=== PATIENT | male | born 1965 | race Caucasian/White ===

== ENCOUNTER → 2016-09-09 | Day surgery (SDC) | payer MEDICAID ==
[~2016-09-09] MED LIST: HUMALOG MIX75/253 ML SC; JANUVIA100 MG PO; LISINOPRIL20 MG PO; METFORMIN HCL1000 MG PO; TIZANIDINE HCL 44 MG NG; TRESIBA FL100 UNIT/1 SQ
[2016-09-09 07:46] LABS: HEMOGLOBIN 14.5 g/dL (14.1-18.0); LYMPH # 1.9 K/mm3 (0.7-4.5); LYMPH % 34.6 % (10-50)
[2016-09-09 07:50] LABS: BUN 15 mg/dL (7-18)
[2016-09-09 07:51] LABS: GFR (ESTIMATED) 64 ML/MIN (>60)
--- NOTE | 2016-09-09 08:43 | RADIOLOGY REPORT PS360 ---
ARTERIAL/HFR-ZNIBQPRWOEV-ZIN CLAUDICATION, ORDERING PHYSICIAN: Jt Alfred MD PATIENT AGE: 51 years TECHNIQUE: Segmental pressures obtained of both right and left leg. These are compared to brachial blood pressure to yield index at each level sampled including summary NICHOLAS. The data sheets from the procedure are available in PACS FINDINGS Rest study only performed today No prior studies available for comparison. Blood pressures reported are in millimeters mercury. RIGHT LEG NICHOLAS = 1.3. Brachial BP: 135 Thigh BP: 142 Calf BP: 159 Ankle PT: 173 Ankle DP : 125 Digit =131 LEFT LEG NICHOLAS = 1.2 Brachial BPD: 132 Thigh BP: 152 Calf BP: 176 Ankle PT:168 Ankle DP: 133 Digit = 140 Pulses and waveforms: Normal IMPRESSION: 1. The right NICHOLAS is slightly high and may be seen with vessel hardening from diabetes 2. Unremarkable left NICHOLAS with normal bilateral waveforms and pulses
--- NOTE | 2016-09-09 13:08 | RADIOLOGY REPORT PS360 ---
CARDIAC CATHETERIZATION DATE OF CATHETERIZATION:09/09/2016 11:29 AM PROCEDURES: 1. Left heart catheterization 2. Left ventriculogram 3. Selective coronary angiogram INDICATION FOR TEST: 1. Abnormal Myoview 2. Risk factors for coronary artery disease 3. Angina pectoris Informed consent was obtained prior to the procedure. COMPLICATIONS: None ESTIMATED BLOOD LOSS: Less than 10 ml. TECHNIQUE: One percent lidocaine used to anesthetize the right anterior aspect of the wrist. The right radial artery was accessed via the Seldinger technique. A 6 Dutch sheath was placed in the right radial artery. 2.5 mg of verapamil, 800 mcg of nitroglycerin and 5000 U Heparin were given through the arterial sheath. The Veronica catheter was also used to perform left heart catheterization and left ventriculography. At the end of the procedure the patient was transferred to the post-op holding area in stable condition for arterial sheath removal. ANGIOGRAPHIC RESULTS: 1. The left main artery normal 2. The left anterior descending artery proximally has mild luminal irregularities with a concentric 20% stenosis immediately after the first septal acquisitions logistics analyst and first diagonal artery. There is an additional 20% mid vessel stenosis 3. The circumflex artery is a very large dominant vessel which has mild luminal irregularities with no stenosis greater than 10% 4. The right coronary artery is a vestigial vessel and normal 5. The MOON ventriculogram reveals normal 65% 6. The left ventricular end-diastolic pressure 10 mmHg IMPRESSION: 1. Mild nonflow limiting coronary artery disease 2. Normal ejection fraction 3. Normal left ventricular end-diastolic pressure PLAN: 1. Risk factor modification 2. Evaluation of noncardiac chest pain
[2016-09-09 14:51] VITALS: BP 125/80
--- NOTE | 2016-09-10 11:47 | RADIOLOGY REPORT PS360 ---
PROCEDURE 2-D M-mode and color Doppler study INDICATIONS FOR THE TEST: Chest pain + COPD Heart Murmur Tobacco Smoking Palpitations Fatigue Syncope Edema Hypertension+Diabetes Mellitus+ Rheumatic Fever SOB+PENA Obesity Hyperlipidemia+ Family History HD Additional History PATIENT INFORMATION HEIGHT: 64 WEIGHT:205 GENDER: Male B/P: 2-D/M-MODE INTERPRETATION: 2-D MEASUREMENTS OBSERVED VALUES IN CMS Right Ventricular Dimension (RVDd) 2.4 Interventricular Septum (Thickness)(IVsd) 1.7 Left Ventricular Internal Dimensions(LVIDd) 4.2 Left Ventricular Posterior Wall (Thickness)(LVPWd) 1.6 Aortic Root 4.1 Aortic Cusp Separation 2.1 Left Atrial Dimensions (LAD) 3.5 2D 1. The left atrium is qualitatively mildly enlarged, left ventricle is normal size, there is mild concentric left ventricular hypertrophy present, visually estimated ejection fraction of 55% with no obvious regional wall motion abnormality. 2. The right atrium and right ventricle is normal size and contractility. 3. The aortic valve is minimally thickened and calcified. 4. The mitral valve leaflets are minimally thickened. 5. The tricuspid valve is structurally normal. 6. Pulmonic valve is not well visualized. 7. No significant pericardial effusion noted. DOPPLER INTERROGATION: Doppler interrogation of the aortic mitral and tricuspid valvular presence of mild aortic, mild mitral and tricuspid regurgitation, tricuspid regurgitant jet velocity insufficient for calculation of the right ventricular systolic pressure, diastolic parameters are inconclusive. CONCLUSION: 1. Mildly enlarged left atrium, normal left ventricular size, mild concentric left ventricular hypertrophy, visually estimated ejection fraction 55% with no obvious regional wall motion abnormality. 2. Mild mitral, mild aortic and mild tricuspid regurgitation. 3. No significant pericardial effusion noted.
== END ==
LOC: CATHLAB 06:14 → RT 06:14 → EDSTATUS 07:00
PROVIDERS: Internal Medicine
PROC: B2111ZZ Fluoroscopy of Multiple Coronary Arteries using Low Osmolar Contrast (ICD-10-PCS; 2016-09-09)
PROC: 4A023N7 Measurement of Cardiac Sampling and Pressure, Left Heart, Percutaneous Approach (ICD-10-PCS; principal; 2016-09-09 10:00)
DX: R07.9 Chest pain, unspecified (principal); R94.39 Abnormal result of other cardiovascular function study; I20.8 Other forms of angina pectoris; I70.213 Atherosclerosis of native arteries of extremities with intermittent claudication, bilateral legs; E11.9 Type 2 diabetes mellitus without complications; I10 Essential (primary) hypertension
CPT/HCPCS: C1725; C1769; J1644; Q9967

== ENCOUNTER → 2016-12-12 | Outpatient (CLI) | payer MEDICAID ==
[2016-12-12 15:48] LABS: HEMOGLOBIN 15.2 g/dL (14.1-18.0); LYMPH # 1.9 K/mm3 (0.7-4.5); LYMPH % 28.8 % (10-50)
[2016-12-12 17:28] LABS: BUN 12 mg/dL (7-18)
[2016-12-12 17:32] LABS: GFR (ESTIMATED) 89 ML/MIN (>60)
== END ==
LOC: LAB 15:02
PROVIDERS: Surgery
DX: K40.20 Bilateral inguinal hernia, without obstruction or gangrene, not specified as recurrent (principal); Z01.810 Encounter for preprocedural cardiovascular examination; Z01.811 Encounter for preprocedural respiratory examination; Z01.812 Encounter for preprocedural laboratory examination

== ENCOUNTER 2017-01-02 13:23 | Inpatient (IN) | payer MEDICARE ==
[~2017-01-02] VITALS: Ht 165.1 cm; Wt 92.5 kg
[2017-01-02 13:30] VITALS: BP 161/96
--- NOTE | 2017-01-02 13:54 | Emergency Room Report ---
History of Present Illness Time Seen by [id number] Presenting Problem in Triage Pt arrived:Walked Presenting Problem:PT STATES THAT DR. MALDONADO SENT HIM TO THE ER FROM THE OFFICE R /T TO HIS HIGH BLOOD PRESSURE. PT C/O DIZZINESS HEADACHE. 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 RESIDENCE LEASING AGENT Provided by:SELF Sepsis Risk Assessment: Temp: 98.6 B/P: 161/96 MAP: 117 Pulse: 96 Resp: 20 Recent fever? N Clinical Suspician of Infection? N Mental Status: 1 - Regular (Normal Baseline) Sepsis Risk:Possible Sepsis Risk Have you (or family members/close friends) recently traveled outside the [place]? N If Yes, where/when: Have you had exposure to infectious disease within the past month? N TB? Other? Specify: Source patient, RN notes reviewed, family, RN/MD Exam Limitations no limitations Comment Set 51-year-old male patient presenting to the emergency room from Dr. Conte's office where he went for his 2 week follow-up s/p left inguinal hernia surgery. In the general surgeon's office the patient was dizzy, with a headache, and was found to have a elevated blood pressure, reason why he was sent to the emergency room. The patient is a diabetic, has had strokes in the past. The emergency room the patient also advised that he has been weak and numb on the LEFT side since 8 AM yesterday, when he woke up. He was actually last within normal the night before last, at 9pm when we wnet ot bed (menaing two days ago). Patient hasn't chest pain, any shots of breath at this time. ALLERGIES Coded Allergies: No Known Allergies (12/14/16) Home Medications Active Scripts Insulin Degludec (Tresiba Flextouch U-100) 15 UNIT SQ QHS #1 SYR Ref 1 Prov: 07/15/16 Reported Medications Lisinopril 20 MG PO DAILY #30 TIZANIDINE HCL (Tizanidine Hcl 4 Mg Tablet) 4 MG NG DAILY #30 METFORMIN HCL (Metformin 1000MG) 1,000 MG PO #60 Sitagliptin Phosphate (Januvia 100MG) 100 MG PO DAILY #30 History Medical History General CAD? No Angina: No MN: No Hypertension? Yes Hyperlipidemia? Yes CHF? No DVT? No PE? No COPD? No Asthma? No Anemia? No GERD? No Gastric ulcers? No GI Bleed? No Hernia? Yes Thyroid Problems? No Hypothyroidism? No CVA? Yes Seizures? No Diabetes? Yes Insulin Dependent: Yes Insulin Pump: No Home FSBS? Yes Renal Insuffiency? No End Stage Renal Disease? No UTI? No Stones? Yes BPH? No GB Disease: No Nephritic Syndrome? No Asplenia? No Hepatitis? No Sickle Cell Disease? No Arthritis? No Migraines? No Cataracts? No Glaucoma? No MRSA? No HIV? No TB? No Anxiety? No Depression? No Cancer? No More? No Immunization Hx DT/Tetanus Unknown Flu Refused Pneumonia Refuses Surgical Hx Previous Surgery?Y CARDIAC STENT HERNIA REPAIR Family History Family Hx Diabetes Yes CAD Yes Hypertension Yes Hyperlipidemia Yes Cancer No TB No Social History Smoking Hx Smoker: Former Smoker Tobacco: No Alcohol Alcohol: Yes Review of Systems All Other Systems Reviewed and Negative Psychiatric/Neurological numbness (left-sided), paresthesia (left-sided), weakness (left-sided) Physical Exam Vital Signs Vital Signs Date Time Temp Pulse Resp B/P Pulse O2 O2 Flow FiO2 Ox Delivery Rate 01/02 1330 98.6 96 20 161/96 97 General Appearance normal appearance, WD/WN, mild distress Eye Exam - bilateral eye normal exam, bilateral eye PERRL, bilateral eye EOMI Neck normal inspection, non-tender, supple, full range of motion Respiratory Status Yes: trachea midline, chest symmetrical, non tender chest. No: respiratory distress. Lung Sounds bilateral: normal breath sounds, lungs clear. Cardiovascular normal exam, regular rate/rhythm, no peripheral edema, no gallop, no JVD, no murmur, no rub, normal peripheral pulses Gastrointestinal normal bowel sounds, normal exam, non tender, soft, no organomegaly Extremities non-tender, normal range of motion, normal inspection Neurologic alert, oriented x 3, facial droop (LEFT side), motor weakness (LEFT side), sensory deficit (LEFT side), no visual disturbance, no itching parents Glascow Coma Scale Glascow Coma Scale Response Value EYE response: 4 Spontaneously 4 MOTOR response: 6 OBEYS 6 VERBAL response: 5 Oriented & Converses 5 Total 15 Mental status normal mood/affect Skin intact, normal color, warm/dry Stroke Score/Tx Stroke Evaluation Initial symptoms indicative of possible stroke? Yes NIH STROKE SCORE NIH STROKE SCORE Response Value 1a.Level of Consciousness ALERT 0 1b.LOC Questions ANSWERS BOTH CORRECTLY 0 1c.LOC Commands OBEYS BOTH CORRECTLY 0 2 .Best Gaze NORMAL 0 3 .Visual NO VISUAL LOSS 0 4 .Facial Palsy MINOR 1 5a.Motor Arm Left DRIFT 1 5b.Motor Arm Right DRIFT 1 6a.Motor Leg Left DRIFT 1 6b.Motor Leg Right NO DRIFT 0 7 .Limb Ataxia ABSENT 0 8 .Sensory PARTIAL LOSS 1 9 .Best Language NO APHASIA 0 10.Dysarthria NORMAL ARTICULATION 0 ED.NIH11 NO NEGLECT 0 Total 5 Treatment Consideration t-PA ordered? No Medical contraindications- outside of the therapeutic window Exit section? Yes Medical Decision Making LABS/Meds/Orders Pt receiving controlled substance in ED? No Comment 1430-discussed with Dr. Slaughter, advised of patient's presentation, findings, including CT scan results, as well as onset of neurological deficit. Dr. Slaughter agreeable with hospitalization, recommended ultrasound carotids and echocardiogram today, neuro checks overnight, and arrangements to be made for an MRI brain for tomorrow morning. Abdominal admission patient was in stable medical condition, with no neurological improvement. Results/Orders Laboratory Tests 01/02/17 1400: Sodium 140, Potassium 4.2, Chloride 104, Carbon Dioxide 28, BUN 9, Creatinine 1.0, Estimated Creat Clear 113, Estimated GFR (MDRD) 78, Glucose 196 H, Calcium 8.9, Total Bilirubin 0.3, AST 12 L, ALT 30, Alkaline Phosphatase 79, Creatine Kinase 65, CK-MB (CK-2) Rel Index 0.8, CK and CKMB Interp < 0.5, Troponin I < 0.02, Total Protein 7.8, Albumin 3.8, Globulin 4.0 H, Albumin/Globulin Ratio 1.0 L, PT 10.0, INR 0.93, APTT 24.4, WBC 5.8, RBC 5.12, Hgb 14.4, Hct 44.5, MCV 86.8, RDW 12.5, Plt Count 298, MPV 6.3 L, Gran % 51.4, Gran # 3.0, Lymphocytes % 37.7, Monocytes % 5.6, Eosinophils % 4.2, Basophils % 1.2, Lymphocytes # 2.2, Monocytes # 0.3, Eosinophils # 0.2, Basophils # 0.1, PUBS MCHC 32.4, MCH 28.1 Current Medication Orders Sig/Rodrigo Start time Last Medication Dose Route Stop Time Status Admin Clonidine HCl 0 .STK-MED ONE 01/02 1423 DC .ROUTE Aspirin 0 .STK-MED ONE 01/02 1422 DC .ROUTE Aspirin 325 MG ONCE ONE 01/02 1415 DC 01/02 PO 01/02 1416 1425 Clonidine HCl 0.1 MG ONCE ONE 01/02 1415 DC 01/02 PO 01/02 1416 1424 Sodium Chloride 10 ML PRN PRN 01/02 1345 AC IV 01/03 1339 Orders Procedure Date/time Status Decision to admit 01/02 1427 Active ARTERIAL CAROTID 01/02 1414 Active ECHO ADULT 01/02 1413 Active PARTIAL THROMBOPLASTIN TIME 01/02 1413 Complete PROTHROMBIN TIME 01/02 1413 Complete ELECTROCARDIOGRAM REQUEST 01/[address] HEAD REQ 01/02 1340 Active CHEST(2 VIEWS-NOT PORTABLE) 01/02 1340 Active IV SALINE LOCK 01/02 1340 Active CBC WITH AUTO DIFF 01/02 1340 Complete CARDIAC ENZYMES 01/02 1340 Complete CHEM 12 PROFILE 01/02 1340 Complete 12 LEAD EKG-BESSON (INITIAL) 01/02 UNK Active CM/EKG CM/retail center receptionist Rhythm Normal Sinus Rhythm Rate 85 Ectopy No Comments No acute ischemic changes EKG rate, NSR, rhythm, no evid. of ischemic chgs, no ectopy, normal QRS, normal NC, no EKG for comparison, non-spec. ST/Twave chgs, ST elevation, ST depression, LBBB, RBBB, ectopy, abnormal Q waves XRAY/CT/US XRAY/CT/US 1 XRAY chest XR interpretation by reviewed by me Xray Results no infiltrates, normal heart size, normal lung inflation ximena XRAY/CT/US [address] interpretation by discussed w/radiologist CT Results normal/NAD (no ICH), no fracture seen Departure Departure Time of Disposition 1409 Disposition Still a Patient Clinical Impression Primary Impression: CVA (cerebral vascular accident) Qualifiers: CVA mechanism: unspecified Qualified Code: I63.9 - Cerebral infarction, unspecified Condition STABLE ED Critical Care Critical Care No at 1557
--- NOTE | 2017-01-02 13:59 | RADIOLOGY REPORT PS360 ---
CT HEAD WITHOUT CONTRAST CT BONE WINDOWS included ORDERING PHYSICIAN : PATIENT AGE: 51 years GENDER: Male PROCEDURE: Routine axial images headwithout contrast. Brain & bone windows HISTORY: TINGLING LT HAND AND LT FACIAL DROOP left facial droop Left hand tingling COMPARISON: Previous MRI brain 11/12/2015 FINDINGS: No acute intracranial findings. No hemorrhage. . No mass effect or mass lesion. No subdural nor extra-axial collection. Ventricles & basal cisterns appear satisfactory. Louis & white matter patterns satisfactory. The posterior fossa appear satisfactory and unremarkable. The skull is intact. The visualized portions of the paranasal sinuses are clear. Mastoid air cells, middle ear & IACs are unremarkable. Critical result called to ER on 01/02/2017 1:55 PM. \ IMPRESSION:------- No acute intracranial findings.
--- OUTSIDE RECORDS SUMMARY | 2017-01-02 14:00 | External Medical Summary Rpt ---
Demographics Preferred Language Spanish Marital Status Unknown Caodaism Affiliation Unknown Race Unknown Ethnic Group Unknown Author Author MARIANN Address Unknown Phone Immunization No patient found.
--- OUTSIDE RECORDS SUMMARY | 2017-01-02 14:00 | External Medical Summary Rpt ---
Author Author , MARIANN WAITE Address Unknown Phone [email or web address] Purpose Continuity of Care Document - 12-01-2016 through 2016 Problems Code Diagnosis DOS Provider Status M70.70 OTHER BURSITIS OF HIP, UNSPECIFIED HIP R07.9 CHEST PAIN, UNSPECIFIED Results Labs Lab Lab Date Result Refere Interp Status Commen Order Detail nces retati t Range on Urinalysis dipstick W Reflex Microscopic panel in Urine (12-01-2016 15:45) Bacteri TRACE O complet a 017 ed [Presen 15:45 ce] in Urine sedimen t by Light microsc opy Other TRANS complet element 017 EPI OCC ed s 15:45 [Identi fier] in Urine sedimen t by Light microsc opy Erythro OCC 0 complet cytes 017 ed [Presen 15:45 ce] in Urine sedimen t by Light microsc opy Epithel OCC OCC complet ial 017 ed cells.s 15:45 quamous [Presen ce] in Urine sedimen t by Microsc opy high power field Urinalysis dipstick W Reflex Microscopic panel in Urine (12-01-2016 15:45) Appeara CLEAR CLEAR complet nce of 017 ed Urine 15:45 Bilirub NEGATIV NEG complet in 017 E ed [Presen 15:45 ce] in Urine by Test strip Erythro NEGATIV NEG complet cytes 017 E ed [Presen 15:45 ce] in Urine Color YELLOW YELLOW complet of 017 ed Urine 15:45 Ketones NEGATIV NEG complet 017 E ed [Presen 15:45 ce] in Urine by Automat ed test strip Mucus NEGATIV NEG complet [Presen 017 E ed ce] in 15:45 Urine sedimen t by Light microsc opy Nitrite NEGATIV NEG complet 017 E ed [Presen 15:45 ce] in Urine by Test strip Urobili 07-13-2 0.2 NEG complet nogen 017 ed [Presen 15:45 ce] in Urine by Test strip
--- OUTSIDE RECORDS SUMMARY | 2017-01-02 14:00 | External Medical Summary Rpt ---
Demographics Preferred Language Hebrew Marital Status Unknown Yazidi Affiliation Unknown Race Unknown Ethnic Group Unknown Author Author MARIANN Address Unknown Phone Immunization No patient found.
--- OUTSIDE RECORDS SUMMARY | 2017-01-02 14:00 | External Medical Summary Rpt ---
Author Author , MARIANN WAITE Address Unknown Phone [email or web address] Purpose Continuity of Care Document - 12-01-2016 [...]
--- OUTSIDE RECORDS SUMMARY | 2017-01-02 14:01 | External Medical Summary Rpt ---
Author Author MARIANN Laird, MARIANN [employer] Address Unknown Phone Unavailable Results Glucose [Mass/volume] in Capillary blood by Glucometer Observa Value Referen Units Interpr Notes Date tion ce etation Range Glucose 70 - 110 mg/dl High No Dec 14 [Mass/vol informati 2016 4:42 ume] in on in PM Capillary source blood by data Glucomete r Glucose [Mass/volume] in Capillary blood by Glucometer Observa Value Referen Units Interpr Notes Date ti ce etation Range Glucose 70 - 110 mg/dl High No Dec 14 [Mass/vol informati 2016 9:50 ume] in on in AM Capillary source blood by data Glucomete r Basic metabolic panel in Blood Observa Value Referen Units Interpr Notes Date ti ce etation Range Urea 7 - 18 mg/dL Normal No Dec 12 nitrogen informati 2016 3:03 [Mass/vol on in PM ume] in source Serum or data Plasma Calcium 8.5 - mg/dL Normal No Dec 12 [Mass/vol 10.1 informati 2016 3:03 ume] in on in PM Serum or source Plasma data Chloride 98 - 107 mmoL/L Normal No Dec 12 [Moles/vo informati 2016 3:03 lume] in on in PM Serum or source Plasma data Carbon 21.0 - mmoL/L Normal No Dec 12 dioxide, 32.0 informati 2016 3:03 total on in PM [Moles/vo source lume] in data Serum or Plasma Creatinin 0.70 - mg/dL Normal No Dec 12 e 1.30 informati 2017 3:03 [Mass/vol on in PM ume] in source Serum or data Plasma Estimated >60 ML/MIN No REFERENCE Dec 12 informati RANGE: 2017 3:03 glomerula on in >60 PM r source ML/MIN/1. filtratio data 73 SQUARE n rate METERSIf (GF this patient is -A merican, then multiply theresult by 1.210. Glucose 74 - 106 mg/dL High No Dec 12 [Mass/vol informati 2016 3:03 ume] in on in PM Serum or source Plasma data Potassium 3.5 - 5.1 mmoL/L Normal No Dec 12 informati 2016 3:03 [Moles/vo on in PM lume] in source Serum or data Plasma Sodium 136 - 145 mmoL/L Normal No Dec 12 [Moles/vo informati 2016 3:03 lume] in on in PM Serum or source Plasma data CBC W Auto Differential panel in Blood Observa Value Referen Units Interpr Notes Date tion ce etation Range Basophils 0 - 0.2 K/MM3 Normal No Dec 12 informati 2016 3:03 [#/volume on in PM ] in source Blood by data Automated count Basophils 0.1 - 2.0 % Normal No Dec 12 /100 informati 2017 3:03 leukocyte on in PM s in source Blood by data Automated count Eosinophi 0.0 - 0.4 K/mm3 Normal No Dec 12 ls informati 2016 3:03 [#/volume on in PM ] in source Blood by data Automated count Eosinophi 0.1 - % Normal No Dec 12 ls/100 12.0 informati 2016 3:03 leukocyte on in PM s in source Blood by data Automated count Granulocy 1.3 - 8.0 K/mm3 Normal No Dec 12 ej informati 2016 3:03 [#/volume on in PM ] in source Blood by data Automated count Granulocy 37.0 - % Normal No Dec 12 ej/100 80.0 informati 2016 3:03 leukocyte on in PM s in source Blood by data Automated count Hematocri 42.0 - % Normal No Dec 12 t [Volume 52.0 informati 2016 3:03 on in PM Fraction] source of Blood data Hemoglobi 14.1 - g/dL Normal No Dec 12 n 18.0 informati 2016 3:03 [Mass/vol on in PM ume] in source Blood data Lymphocyt 0.7 - 4.5 K/mm3 Normal No Dec 12 es informati 2016 3:03 [#/volume on in PM ] in source Unspecifi data ed specimen by Automated count Lymphocyt 10 - 50 % Normal No Dec 12 es informati 2016 3:03 [#/volume on in PM ] in source Unspecifi data ed specimen by Automated count Erythrocy 27 - 31.2 pg Normal No Dec 12 te mean informati 2016 3:03 corpuscul on in PM ar source hemoglobi data n [Entitic mass] Erythrocy 31.8 - g/dl Normal No Dec 12 te mean 35.4 informati 2016 3:03 corpuscul on in PM ar source hemoglobi data n concentra tion [Mass/vol ume] by Automated count Erythrocy 82.2 - fl Normal No Dec 12 te mean 97.8 informati 2016 3:03 corpuscul on in PM ar volume source [Entitic data volume] by Automated count Monocytes 0.1 - 1.0 K/mm3 Normal No Dec 12 informati 2016 3:03 [#/volume on in PM ] in source Blood by data Automated count Monocytes 1.7 - 9.3 % Normal No Dec 12 /100 informati 2016 3:03 leukocyte on in PM s in source Blood by data Automated count Platelet 7.4 - fl Low No Dec 12 mean 10.4 informati 2016 3:03 volume on in PM [Entitic source volume] data in Blood by Automated count Platelets 142 - 424 K/mm3 Normal No Dec 12 informati 2016 3:03 [#/volume on in PM ] in source Blood data Erythrocy 4.6 - 6.2 M/mm3 Normal No Dec 12 ej informati 2016 3:03 [#/volume on in PM ] in source Amniotic data fluid Erythrocy 11.5 - % Normal No Dec 12 te 17.5 informati 2016 3:03 distribut on in PM ion width source [Entitic data volume] by Automated count Leukocyte 4.8 - K/MM3 Normal No Dec 12 s 10.8 informati 2016 3:03 [#/volume on in PM ] in source Blood data Lactate [Moles/volume] in Blood Observa Value Referen Units Interpr Notes Date ti ce etation Range Lactate 0.4 - 2.0 mmol/L Normal No Dec 01 [Moles/vo informati 2016 4:30 lume] in on in PM Blood source data Amylase [Enzymatic activity/volume] in Serum or Plasma Observa Value Referen Units Interpr Notes ti ce etation Range Amylase 25 - 115 U/L Normal No Dec 01 [Enzymati informati 2016 4:05 c on in PM activity/ source volume] data in Serum or Plasma Comprehensive metabolic 2000 panel in Serum or Plasma Observa Value Referen Units Interpr Notes Date ti ce etation Range Albumin/G 1.1 - 1.8 No Low No Dec 01 lobulin informati informati 2016 4:05 [Mass on in on in PM ratio] in source source Serum or data data Plasma Albumin 3.4 - 5.0 gm/dL Normal No Dec 01 [Mass/vol informati 2016 4:05 ume] in on in PM Serum or source Plasma data Alkaline 46 - 116 U/L Normal No Dec 01 phosphata informati 2016 4:05 se on in PM [Enzymati source c data activity/ volume] in Serum or Plasma Bilirubin 0.2 - 1.0 mg/dL Normal No Dec 01 .total informati 2016 4:05 [Mass/vol on in PM ume] in source Serum or data Plasma Urea 7 - 18 mg/dL Normal No Dec 01 nitrogen informati 2016 4:05 [Mass/vol on in PM ume] in source Serum or data Plasma Calcium 8.5 - mg/dL Normal No Dec 01 [Mass/vol 10.1 informati 2016 4:05 ume] in on in PM Serum or source Plasma data Chloride 98 - 107 mmoL/L Normal No Dec 01 [Moles/vo informati 2016 4:05 lume] in on in PM Serum or source Plasma data Carbon 21.0 - mmoL/L Normal No Dec 01 dioxide, 32.0 informati 2017 4:05 total on in PM [Moles/vo source lume] in data Serum or Plasma Creatinin 0.70 - mg/dL Normal No Dec 01 e 1.30 informati 2016 4:05 [Mass/vol on in PM ume] in source Serum or data Plasma Creatinin 50 - 200 ML/MIN Normal No Dec 01 e renal informati 2016 4:05 clearance on in PM source predicted data by Cockcroft -Gault formula Estimated >60 ML/MIN No REFERENCE Dec 01 informati RANGE: 2017 4:05 glomerula on in >60 PM r source ML/MIN/1. filtratio data 73 SQUARE n rate METERSIf (GF this patient is -A merican, then multiply theresult by 1.210. Globulin 1.3 - 3.2 gm/dL High No Dec 01 [Mass/vol informati 2016 4:05 ume] in on in PM Serum source data Glucose 74 - 106 mg/dL High No Dec 01 [Mass/vol informati 2016 4:05 ume] in on in PM Serum or source Plasma data Potassium 3.5 - 5.1 mmoL/L Normal No Dec 012016 4:05 [Moles/vo on in PM lume] in source Serum or data Plasma Sodium 136 - 145 mmoL/L Normal No Dec 01 [Moles/vo 2016 4:05 lume] in on in PM Serum or source Plasma data Aspartate 15 - 37 U/L Low No Dec 012016 4:05 aminotran on in PM sferase source [Enzymati data c activity/ volume] in Serum or Plasma Alanine 12 - 78 U/L Normal No Dec 01 aminotran 2016 4:05 sferase on in PM [Enzymati source c data activity/ volume] in Serum or Plasma Protein 6.4 - 8.2 gm/dL Normal No Dec 01 [Mass/vol 2016 4:05 ume] in on in PM Serum or source Plasma data Lipase [Enzymatic activity/volume] in Serum or Plasma Observa Value Referen Units Interpr Notes Date tion ce etation Range Lipase 73 - 393 U/L Normal No Dec 01 [Enzymati ati 2016 4:05 c on in PM activity/ source volume] data in Serum or Plasma CBC W Auto Differential panel in Blood Observa Value Referen Units Interpr Notes Date tion ce etation Range Basophils 0 - 0.2 K/MM3 Normal No Dec 012016 4:05 [#/volume on in PM ] in source Blood by data Automated count Basophils 0.1 - 2.0 % Normal No Dec 01 informati 2016 4:05 leukocyte on in PM s in source Blood by data Automated count Eosinophi 0.0 - 0.4 K/mm3 Normal No Dec 01 ls ati 2016 4:05 [#/volume on in PM ] in source Blood by data Automated count Eosinophi 0.1 - % Normal No Dec 01 ls/100 12.0 informati 2016 4:05 leukocyte on in PM s in source Blood by data Automated count Granulocy 1.3 - 8.0 K/mm3 Normal No Dec 01 ej ati 2016 4:05 [#/volume on in PM ] in source Blood by data Automated count Granulocy 37.0 - % Normal No Dec 01 ej/100 80.0 informati 2016 4:05 leukocyte on in PM s in source Blood by data Automated count Hematocri 42.0 - % Normal No Dec 01 t [Volume 52.0 informati 2017 4:05 on in PM Fraction] source of Blood data Hemoglobi 14.1 - g/dL Normal No Dec 01 n 18.0 informati 2016 4:05 [Mass/vol on in PM ume] in source Blood data Lymphocyt 0.7 - 4.5 K/mm3 Normal No Dec 01 es informati 2016 4:05 [#/volume on in PM ] in source Unspecifi data ed specimen by Automated count Lymphocyt 10 - 50 % Normal No Dec 01 es informati 2016 4:05 [#/volume on in PM ] in source Unspecifi data ed specimen by Automated count Erythrocy 27 - 31.2 pg Normal No Dec 01 te mean informati 2016 4:05 corpuscul on in PM ar source hemoglobi data n [Entitic mass] Erythrocy 31.8 - g/dl Normal No Dec 01 te mean 35.4 informati 2016 4:05 corpuscul on in PM ar source hemoglobi data n concentra tion [Mass/vol ume] by Automated count Erythrocy 82.2 - fl Normal No Dec 01 te mean 97.8 informati 2016 4:05 corpuscul on in PM ar volume source [Entitic data volume] by Automated count Monocytes 0.1 - 1.0 K/mm3 Normal No Dec 01 informati 2016 4:05 [#/volume on in PM ] in source Blood by data Automated count Monocytes 1.7 - 9.3 % Normal No Dec 01 /100 informati 2017 4:05 leukocyte on in PM s in source Blood by data Automated count Platelet 7.4 - fl Low No Dec 01 mean 10.4 informati 2016 4:05 volume on in PM [Entitic source volume] data in Blood by Automated count Platelets 142 - 424 K/mm3 Normal No Dec 01 informati 2017 4:05 [#/volume on in PM ] in source Blood data Erythrocy 4.6 - 6.2 M/mm3 Normal No Dec 01 ej informati 2017 4:05 [#/volume on in PM ] in source Amniotic data fluid Erythrocy 11.5 - % Normal No Dec 01 te 17.5 informati 2017 4:05 distribut on in PM ion width source [Entitic data volume] by Automated count Leukocyte 4.8 - K/MM3 Normal No Dec 01 s 10.8 informati 2016 4:05 [#/volume on in PM ] in source Blood data Urinalysis dipstick W Reflex Microscopic panel in Urine Observa Value Referen Units Interpr Notes Date tion ce etation Range Appeara CLEAR CLEAR No No No Dec 01 nce of informa informa informa 2017 Urine tion in tion in tion in 3:45 PM source source source data data data Bacteri TRACE O No No No Dec 01 a informa informa informa 2016 [Presen tion in tion in tion in 3:45 PM ce] in source source source Urine data data data sedimen t by Light microsc opy Bilirub NEGATIV NEG No No No Dec 01 in E informa informa informa 2016 [Presen tion in tion in tion in 3:45 PM ce] in source source source Urine data data data by Test strip Erythro NEGATIV NEG No No No Dec 01 cytes E informa informa informa 2016 [Presen tion in tion in tion in 3:45 PM ce] in source source source Urine data data data Color YELLOW YELLOW No No No Dec 01 of informa informa informa 2016 Urine tion in tion in tion in 3:45 PM source source source data data data Glucose NEG No High No Dec 01 [Mass/vol informati informati 2016 3:45 ume] in on in on in PM Urine by source source Test data data strip Ketones NEGATIV NEG mg/dL No No Dec 01 E informa informa 2016 [Presen tion in tion in 3:45 PM ce] in source source Urine data data by Automat ed test strip Mucus NEGATIV NEG No No No Dec 01 [Presen E informa informa informa 2016 ce] in tion in tion in tion in 3:45 PM Urine source source source sedimen data data data t by Light microsc opy Nitrite NEGATIV NEG No No No Dec 01 E informa informa informa 2016 [Presen tion in tion in tion in 3:45 PM ce] in source source source Urine data data data by Test strip Other TRANS No No No No Dec 01 element EPI OCC informa informa informa informa 2016 s tion in tion in tion in tion in 3:45 PM [Identi source source source source fier] data data data data in Urine sedimen t by Light microsc opy pH of 5.0 - 8.5 No Normal No Dec 01 Urine informati informati 2017 3:45 on in on in PM source source data data Protein NEG mg/dL No No Dec 01 [Mass/vol informati informati 2017 3:45 ume] in on in on in PM Urine by source source Automated data data test strip Erythro OCC 0 rbc/hpf No No Dec 01 cytes informa informa 2016 [Presen tion in tion in 3:45 PM ce] in source source Urine data data sedimen t by Light microsc opy Specific 1.005 - No Normal No Dec 01 gravity 1.030 informati informati 2017 3:45 of Urine on in on in PM source source data data Epithel OCC OCC #/hpf No No Dec 01 ial informa informa 2017 cells.s tion in tion in 3:45 PM quamous source source data data [Presen ce] in Urine sedimen t by Microsc opy high power field Urobili 0.2 NEG E.U./dL No No Dec 01 nogen informa informa 2016 [Presen tion in tion in 3:45 PM ce] in source source Urine data data by Test strip Leukocyte O wbc/hpf No No Dec 01 s informati informati 2017 3:45 [#/volume on in on in PM ] in source source Urine data data Urinalysis dipstick W Reflex Microscopic panel in Urine Observa Value Referen Units Interpr Notes Date tion ce etation Range Appeara CLEAR CLEAR No No No Dec 01 nce of informa informa informa 2017 Urine tion in tion in tion in 3:45 PM source source source data data data Bilirub NEGATIV NEG No No No Dec 01 in E informa informa informa 2016 [Presen tion in tion in tion in 3:45 PM ce] in source source source Urine data data data by Test strip Erythro NEGATIV NEG No No No Dec 01 cytes E informa informa informa 2016 [Presen tion in tion in tion in 3:45 PM ce] in source source source Urine data data data Color YELLOW YELLOW No No No Dec 01 of informa informa informa 2017 Urine tion in tion in tion in 3:45 PM source source source data data data Glucose NEG No High No Dec 01 [Mass/vol informati informati 2017 3:45 ume] in on in on in PM Urine by source source Test data data strip Ketones NEGATIV NEG mg/dL No No Dec 01 E informa informa 2016 [Presen tion in tion in 3:45 PM ce] in source source Urine data data by Automat ed test strip Mucus NEGATIV NEG No No No Dec 01 [Presen E informa informa informa 2016 ce] in tion in tion in tion in 3:45 PM Urine source source source sedimen data data data t by Light microsc opy Nitrite NEGATIV NEG No No No Dec 01 E informa informa informa 2016 [Presen tion in tion in tion in 3:45 PM ce] in source source source Urine data data data by Test strip pH of 5.0 - 8.5 No Normal No Dec 01 Urine informati informati 2017 3:45 on in on in PM source source data data Protein NEG mg/dL No No Dec 01 [Mass/vol informati informati 2016 3:45 ume] in on in on in PM Urine by source source Automated data data test strip Specific 1.005 - No Normal No Dec 01 gravity 1.030 informati informati 2016 3:45 of Urine on in on in PM source source data data Urobili 0.2 NEG E.U./dL No No Dec 01 nogen informa informa 2016 [Presen tion in tion in 3:45 PM ce] in source source Urine data data by Test strip
--- OUTSIDE RECORDS SUMMARY | 2017-01-02 14:01 | External Medical Summary Rpt ---
Author Author MARIANN Laird, MARIANN [employer] Address Unknown Phone Unavailable [...]
[2017-01-02 14:11] LABS: HEMOGLOBIN 14.4 g/dL (14.1-18.0); LYMPH # 2.2 K/mm3 (0.7-4.5); LYMPH % 37.7 % (10-50)
[2017-01-02 14:36] LABS: BUN 9 mg/dL (7-18)
--- OUTSIDE RECORDS SUMMARY | 2017-01-02 14:36 | External Medical Summary Rpt ---
Demographics Preferred Language Occitan Marital Status Unknown Mosque Affiliation Unknown Race Unknown Ethnic Group Unknown Author Author MARIANN Address Unknown Phone Immunization No patient found.
--- OUTSIDE RECORDS SUMMARY | 2017-01-02 14:36 | External Medical Summary Rpt ---
Author Author , MARIANN WAITE Address Unknown Phone [email or web address] Purpose Continuity of Care Document - 12-01-2016 [...]
--- OUTSIDE RECORDS SUMMARY | 2017-01-02 14:36 | External Medical Summary Rpt ---
Author Author MARIANN Laird, MARIANN [employer] Organization [employer] Address Unknown Phone Unavailable Results CBC W Auto Differential panel in Blood Observa Value Referen Units Interpr Notes Date tion ce etation Range Basophils 0 - 0.2 K/MM3 Normal No Dec 14 informati 2016 2:00 [#/volume on in PM ] in source Blood by data Automated count Basophils 0.1 - 2.0 % Normal No Dec 14 /100 informati 2016 2:00 leukocyte on in PM s in source Blood by data Automated count Eosinophi 0.0 - 0.4 K/mm3 Normal No Dec 14 ls informati 2016 2:00 [#/volume on in PM ] in source Blood by data Automated count Eosinophi 0.1 - % Normal No Jan 02 ls/100 12.0 informati 2016 2:00 leukocyte on in PM s in source Blood by data Automated count Granulocy 1.3 - 8.0 K/mm3 Normal No Dec 14 ej informati 2016 2:00 [#/volume on in PM ] in source Blood by data Automated count Granulocy 37.0 - % Normal No Dec 14 ej/100 80.0 informati 2016 2:00 leukocyte on in PM s in source Blood by data Automated count Hematocri 42.0 - % Normal No Jan 02 t [Volume 52.0 informati 2016 2:00 on in PM Fraction] source of Blood data Hemoglobi 14.1 - g/dL Normal No Jan 02 n 18.0 ati 2016 2:00 [Mass/vol on in PM ume] in source Blood data Lymphocyt 0.7 - 4.5 K/mm3 Normal No Jan 02 es informati 2016 2:00 [#/volume on in PM ] in source Unspecifi data ed specimen by Automated count Lymphocyt 10 - 50 % Normal No Jan 02 es informati 2016 2:00 [#/volume on in PM ] in source Unspecifi data ed specimen by Automated count Erythrocy 27 - 31.2 pg Normal No Jan 02 te mean ati 2016 2:00 corpuscul on in PM ar source hemoglobi data n [Entitic mass] Erythrocy 31.8 - g/dl Normal No Jan 02 te mean 35.4 inform2016 2:00 corpuscul on in PM ar source hemoglobi data n concentra tion [Mass/vol ume] by Automated count Erythrocy 82.2 - fl Normal No Jan 02 te mean 97.8 2016 2:00 corpuscul on in PM ar volume source [Entitic data volume] by Automated count Monocytes 0.1 - 1.0 K/mm3 Normal No Jan 02 inform2016 2:00 [#/volume on in PM ] in source Blood by data Automated count Monocytes 1.7 - 9.3 % Normal No Jan 02 /100 informati 2016 2:00 leukocyte on in PM s in source Blood by data Automated count Platelet 7.4 - fl Low No Jan 02 mean 10.4 informati 2016 2:00 volume on in PM [Entitic source volume] data in Blood by Automated count Platelets 142 - 424 K/mm3 Normal No Jan 02 inform2016 2:00 [#/volume on in PM ] in source Blood data Erythrocy 4.6 - 6.2 M/mm3 Normal No Jan 02 ej informati 2016 2:00 [#/volume on in PM ] in source Amniotic data fluid Erythrocy 11.5 - % Normal No Jan 02 te 17.5 informati 2016 2:00 distribut on in PM ion width source [Entitic data volume] by Automated count Leukocyte 4.8 - K/MM3 Normal No Jan 02 s 10.8 informati 2016 2:00 [#/volume on in PM ] in source Blood data Glucose [Mass/volume] in Capillary blood by Glucometer [...] Normal No Dec 12 e 1.30 informati 2016 3:03 [Mass/vol on in PM [...] Normal No Dec 12 te 17.5 informati 2017 3:03 distribut on in PM ion width source [Entitic data volume] by Automated count Leukocyte 4.8 - K/MM3 Normal No Dec 12 s 10.8 informati 2016 3:03 [#/volume on in PM ] in source Blood data Lactate [Moles/volume] in Blood Observa Value Referen Units Interpr Notes Date tion ce etation Range Lactate 0.4 - 2.0 mmol/L Normal No Dec 01 [Moles/vo informati 2016 4:30 lume] in on in PM Blood source data Amylase [Enzymatic activity/volume] in Serum or Plasma Observa Value Referen Units Interpr Notes Date tion ce etation Range Amylase 25 - 115 U/L Normal No Dec 01 [Enzymati informati 2016 4:05 c on in PM activity/ source volume] data in Serum or Plasma Comprehensive metabolic 2000 panel in Serum or Plasma Observa Value Referen Units Interpr Notes Date tion ce etation Range Albumin/G 1.1 - 1.8 [...] mg/dL Normal No Dec 01 nitrogen informati 2017 4:05 [Mass/vol on in PM ume] in source Serum or data Plasma Calcium 8.5 - mg/dL Normal No Dec 01 [Mass/vol 10.1 informati 2017 4:05 ume] in on in PM Serum or source Plasma data Chloride 98 - 107 mmoL/L Normal No Dec 01 [Moles/vo informati 2016 4:05 lume] in on in PM Serum or source Plasma data Carbon 21.0 - mmoL/L Normal No Dec 01 dioxide, 32.0 informati 2016 4:05 total on in PM [Moles/vo source [...] 3.5 - 5.1 mmoL/L Normal No Dec 01 informati 2016 4:05 [Moles/vo on in PM lume] in source Serum or data Plasma Sodium 136 - 145 mmoL/L Normal No Dec 01 [Moles/vo informati 2016 4:05 lume] in on in PM Serum or source Plasma data Aspartate 15 - 37 U/L Low No Dec 01 informati 2016 4:05 aminotran on in PM sferase source [Enzymati data c activity/ volume] in Serum or Plasma Alanine 12 - 78 U/L Normal No Dec 01 aminotran informati 2016 4:05 sferase on in PM [Enzymati source c data activity/ volume] in Serum or Plasma Protein 6.4 - 8.2 gm/dL Normal No Dec 01 [Mass/vol informati 2016 4:05 ume] in on in PM Serum or source Plasma data Lipase [Enzymatic activity/volume] in Serum or Plasma Observa Value Referen Units Interpr Notes Date tion ce etation Range Lipase 73 - 393 U/L Normal No Dec 01 [Enzymati informati 2016 4:05 c on in PM activity/ source volume] data in Serum or Plasma CBC W Auto Differential panel in Blood Observa Value Referen Units Interpr Notes Date tion ce etation Range Basophils 0 - 0.2 K/MM3 Normal No Dec 01 informati 2016 4:05 [#/volume on in PM ] in source Blood by data Automated count Basophils 0.1 - 2.0 % Normal No Dec 01 / informati 2016 4:05 leukocyte on in PM s in source Blood by data Automated count Eosinophi 0.0 - 0.4 K/mm3 Normal No Dec 01 ls informati 2016 4:05 [#/volume on in PM ] in source Blood by data Automated count Eosinophi 0.1 - % Normal No Dec 01 ls/100 12.0 informati 2016 4:05 leukocyte on in PM s in source Blood by data Automated count Granulocy 1.3 - 8.0 K/mm3 Normal No Dec 01 ej informati 2016 4:05 [#/volume on in PM ] in source Blood by data Automated count Granulocy 37.0 - % Normal No Dec 01 ej/100 80.0 informati 2016 4:05 leukocyte on in PM s in source Blood by data Automated count Hematocri 42.0 - % Normal No Dec 01 t [Volume 52.0 informati 2016 4:05 on in PM Fraction] source of [...] % Normal No Dec 01 /100 informati 2016 4:05 leukocyte on in PM s in source Blood by data Automated count Platelet 7.4 - fl Low No Dec 01 mean 10.4 informati 2016 4:05 volume on in PM [Entitic source volume] data in Blood by Automated count Platelets 142 - 424 K/mm3 Normal No Dec 01 informati 2016 4:05 [#/volume on in PM ] in source Blood data Erythrocy 4.6 - 6.2 M/mm3 Normal No Dec 01 ej ati 2016 4:05 [#/volume on in PM ] in source Amniotic data fluid Erythrocy 11.5 - % Normal No Dec 01 te 17.5 ati 2016 4:05 distribut on in PM ion width source [Entitic data volume] by Automated count Leukocyte 4.8 - K/MM3 Normal No Dec 01 s 10.8 2016 4:05 [#/volume on in PM ] in source Blood data Urinalysis dipstick W Reflex Microscopic panel in Urine Observa Value Referen Units Interpr Notes Date tion ce etation Range Appeara CLEAR CLEAR No No No Dec 01 nce of informa informa informa 2016 Urine tion [...] element EPI OCC informa informa informa informa 2017 s tion in tion in tion in [...] No No Dec 01 s informati informati 2016 3:45 [#/volume on in on in PM ] in source source Urine data data Urinalysis dipstick W Reflex Microscopic panel in Urine Observa Value Referen Units Interpr Notes Date tion ce etation Range Appeara CLEAR CLEAR No No No Dec 01 nce of informa informa informa 2016 Urine tion [...] No No Dec 01 nogen informa informa 2017 [Presen tion in tion in 3:45 PM ce] in source source Urine data data by Test strip
--- OUTSIDE RECORDS SUMMARY | 2017-01-02 14:36 | External Medical Summary Rpt ---
Author Author MARIANN Laird, MARIANN [employer] Organization [employer] Address Unknown Phone Unavailable [...]
--- OUTSIDE RECORDS SUMMARY | 2017-01-02 14:36 | External Medical Summary Rpt ---
Demographics Preferred Language Kiswahili Marital Status Unknown Restorationism Affiliation Unknown Race Unknown Ethnic Group Unknown Author Author MARIANN Address Unknown Phone Immunization No patient found.
--- OUTSIDE RECORDS SUMMARY | 2017-01-02 14:36 | External Medical Summary Rpt ---
Author Author , MARIANN WAITE Address Unknown Phone [email or web address] Purpose Continuity of Care Document - 12-01-2016 [...]
[2017-01-02 14:37] LABS: GFR (ESTIMATED) 78 ML/MIN (>60)
[2017-01-02 15:41] VITALS: BP 147/92
[2017-01-02] MEDS ORDERED: TOUJEO300 U/ML SC (16:04)
--- NOTE | 2017-01-02 16:05 | CARDIOVASCULAR REPORT ---
"Cerebrovascular Exam Indications: 782.0 Disturbance of skin sensation. IMPRESSIONS 1. The bilateral vertebral arteries are patent with normal antegrade flow. 2. Study suggests less than 20% stenosis involving the right internal carotid artery and the left internal carotid artery. Carotid duplex study. Complete study and Doppler flow study including spectral analysis, color and grimaldo scale imaging. Height: Height: 165.1cm. Height: 65in. Weight: Weight: 93kg. Weight: 204.6lb. Body mass index: BMI: 34.1kg/m^2. Body surface area: BSA: 2.1m^2. Location: Vascular laboratory. Patient status: Inpatient. Tables: Arterial flow: + +--------+--------+ |Location |V sys |V ed | + +--------+--------+ |Right CCA - proximal|106cm/s |22cm/s | + +--------+--------+ |Right CCA - distal |77.8cm/s|19.6cm/s| + +--------+--------+ |Right ECA |81cm/s |--------| + +--------+--------+ |Right ICA - proximal|78.6cm/s|23.6cm/s| + +--------+--------+ |Right ICA - mid |75.6cm/s|30.4cm/s| + +--------+--------+ |Right ICA - distal |60cm/s |22.9cm/s| + +--------+--------+ |Right vertebral |36.5cm/s|--------| + +--------+--------+ |Left CCA - proximal |76.6cm/s|19.6cm/s| + +--------+--------+ |Left CCA - distal |118cm/s |31.4cm/s| + +--------+--------+ |Left ECA |128cm/s |--------| + +--------+--------+ |Left ICA - proximal |69.2cm/s|26cm/s | + +--------+--------+ |Left ICA - mid |63.4cm/s|23.9cm/s| + +--------+--------+ |Left ICA - distal |62.6cm/s|28.6cm/s| + +--------+--------+ |Left vertebral |32.4cm/s|--------| + +--------+--------+ Velocity ratios: + + + + + + | |Right, V sys|Right, V ed|Left, V sys|Left, V ed| + + + + + + |Max ICA/dist CCA|1.01 |1.55 |0.59 |0.91 | + + + + + + (Report amended ) Electronically signed by: Steve Evans [id number]"
--- NOTE | 2017-01-02 17:13 | RADIOLOGY REPORT PS360 ---
PROCEDURE: 2-D M-mode and color Doppler study INDICATIONS FOR THE TEST: Chest pain COPD Heart Murmur Tobacco Smoking Palpitations Fatigue Syncope Edema Hypertension+Diabetes Mellitus+ Rheumatic Fever SOB+PENA Obesity+Hyperlipidemia+ Family History HD Additional History RECENT HERNIA REPAIR PATIENT INFORMATION HEIGHT: 64 WEIGHT:204 GENDER: Male B/P:147/92 2-D/M-MODE INTERPRETATION: 2-D MEASUREMENTS OBSERVED VALUES IN CMS Right Ventricular Dimension (RVDd) 2.8 Interventricular Septum (Thickness)(IVsd) 1.0 Left Ventricular Internal Dimensions(LVIDd) 5.3 Left Ventricular Posterior Wall (Thickness)(LVPWd) 0.9 Aortic Root 3.5 Aortic Cusp Separation 2.2 Left Atrial Dimensions (LAD) 4.2 2D 1. Left atrium is mildly enlarged, left ventricle is normal size, there is no concentric left ventricular hypertrophy, visually estimated ejection fraction 50-55% with no obvious regional wall motion abnormality, endocardial surfaces are somewhat poorly visualized. 2. The right atrium is normal size, right ventricle is mildly enlarged with normal contractility. 3. The aortic valve is minimally thickened and fibrosed. 4. The mitral and tricuspid valve are structurally normal. 5. The pulmonic valve is poorly visualized. 6. No significant pericardial effusion noted. DOPPLER INTERROGATION: Doppler interrogation of the aortic mitral and tricuspid valvular presence of trace aortic, mild mitral and tricuspid regurgitation, tricuspid regurgitant jet velocity insufficient for calculation of the right ventricular systolic pressure, Doppler evidence of impaired LV relaxation seen, there is no tissue Doppler performed. CONCLUSION: 1. Mildly enlarged left atrium, normal left ventricular size, visually estimated ejection fraction 50-55% with no obvious regional wall motion abnormality, endocardial surfaces are somewhat poorly visualized, Doppler evidence of impaired LV relaxation seen. 2. Trace aortic, mild mitral and tricuspid regurgitation. 3. No significant pericardial effusion noted.
[2017-01-02 19:36] VITALS: BP 121/79
[2017-01-02 19:47] VITALS: BP 121/79
--- NOTE | 2017-01-02 23:47 | RADIOLOGY REPORT PS360 ---
CHEST(2 VIEWS-NOT PORTABLE) Ordering physician: Jeancarlos Dent MD Age: 51 years Male INDICATION: Tingling left facial droop possible strokeTINGLING AND LEFT FACIAL DROOP PROCEDURE: CHEST(2 VIEWS-NOT PORTABLE) FINDINGS:. film previous chest film July 2016. Period Lungs well expanded and clear with nothing definitely acute. No pneumothorax. No pleural effusion. Heart upper normal size. Borderline cardiomegaly. Previous CT demonstrates generous mediastinal lipomatosis and stable elevation right hemidiaphragm today.. Normal pulmonary vascularity. Hilar and mediastinal structures appear satisfactory. Chest wall unremarkable. T-spine intact. IMPRESSION ----- Lungs clear stable chest no active disease. Borderline cardiomegaly
[2017-01-03 00:37] VITALS: BP 113/70
[2017-01-03 03:44] VITALS: BP 108/69
--- NOTE | 2017-01-03 07:05 | PHARMACY CLINIC NOTE ---
Patient Demographics Patient Demographics Admission date: 01/02/17 Date: 01/03/17 Time: 0703 Allergies Coded Allergies: No Known Allergies (12/14/16) HEIGHT- FT: 5 IN: 5.00 K.534 VTE General Information Labs: Laboratory Tests 01/02 1400 Coagulation PT (9.4 - 11.8 SECONDS) 10.0 INR (0.9 - 1.1) 0.93 APTT (23.6 - 34.0 SECONDS) 24.4 Hematology Hgb (14.1 - 18.0 g/dL) 14.4 Hct (42.0 - 52.0 %) 44.5 Plt Count (142 - 424 K/mm3) 298 Disclaimer The following section includes nursing documentation that has been pulled in for pharmacy review. Patient's VTE score: 4 Patient's VTE Risk: LOW RISK Clinical trial participant? No VTE prophylaxis NQF [id number] VTE prophylaxis ordered? Yes Type of prophylaxis/treatment: WIL at 0704
--- NOTE | 2017-01-03 07:05 | PHARMACY CLINIC NOTE ---
Patient Demographics Patient Demographics Admission date: 01/02/17 Date: 01/03/17 Time: 0703 Allergies Coded Allergies: No Known Allergies (12/14/16) HEIGHT- FT: 5 IN: 5.00 K.534 VTE General Information Labs: Laboratory Tests 01/02 1400 Coagulation PT (9.4 - 11.8 SECONDS) 10.0 INR (0.9 - 1.1) 0.93 APTT (23.6 - 34.0 SECONDS) 24.4 Hematology Hgb (14.1 - 18.0 g/dL) 14.4 Hct (42.0 - 52.0 %) 44.5 Plt Count (142 - 424 K/mm3) 298 Disclaimer The following section includes nursing documentation that has been pulled in for pharmacy review. Patient's VTE score: 4 Patient's VTE Risk: LOW RISK Clinical trial participant? No VTE prophylaxis NQF [id number] VTE prophylaxis ordered? Yes Type of prophylaxis/treatment: WIL at 0704
--- NOTE | 2017-01-03 07:28 | HISTORY AND PHYSICAL REPORT ---
Demographics: Admit date: 01/03/17 Chief complaint: dizziness, left sided weakness, and headache PRIMARY DIAGNOSIS: CVA Allergies: Coded Allergies: No Known Allergies (12/14/16) History of present illness: History of present illness: 51-year-old male patient with a history of diabetes, hypertension, and CVA was sent to the ED for evaluation of hypertension and dizziness from Dr. Conte's office where he was being seen for a 2 week follow-up status post LEFT inguinal hernia repair. Patient states "I haven't been RIGHT since my surgery." He reports left-sided pain since his hernia repair; however no left-sided weakness until 2-3 days ago. Patient had a previous CVA 1 year ago in which he had some left-sided weakness. He was able to rehab completely with no residual weakness. In the ED, patient was found to be hypertensive with left-sided weakness. CT of the head was obtained which was normal. Patient was admitted to acute care for further evaluation. Echo was obtained which was unremarkable with ejection fraction 50-55 percent. Carotid Dopplers were obtained which were normal. Past medical history: Family HX Diabetes Yes CAD Yes Hypertension Yes Hyperlipidemia Yes Cancer No TB No Immunization HX DT/Tetanus Unknown Flu Refused Pneumonia Refuses TB Test in last year No General CAD? Yes Angina: No OR: No Hypertension? Yes Hyperlipidemia? Yes CHF? No DVT? No PE? No COPD? No Asthma? No Anemia? No GERD? No Gastric ulcers? No GI Bleed? No Hernia? Yes Thyroid Problems? No Hypothyroidism? No CVA? Yes Seizures? No Diabetes? Yes Insulin Dependent: Yes Insulin Pump: No Home FSBS? Yes Renal Insuffiency? No UTI? No Stones? Yes BPH? No GB Disease: No Nephritic Syndrome? No Asplenia? No Hepatitis? No Sickle Cell Disease? No Arthritis? No Migraines? No Cataracts? No Glaucoma? No MRSA? No HIV? No TB? No Anxiety? No Depression? No Cancer? No More? No Past Surgical HX Previous Surgery?Y CARDIAC CATH HERNIA REPAIR Current home meds: Reported Medications Lisinopril 20 MG PO DAILY #30 TIZANIDINE HCL (Tizanidine Hcl 4 Mg Tablet) 4 MG NG DAILY #30 METFORMIN HCL (Metformin 1000MG) 1,000 MG PO #60 Sitagliptin Phosphate (Januvia 100MG) 100 MG PO DAILY #30 INSULIN GLARGINE,HUM.REC.ANLOG (Kylah Vergara) 25 SC QHS Social Hx: Smoking HX Tobacco No Alcohol Alcohol: No Hx of Drug Use Drug Use? No Patient's support system is fair Review of systems: Constitutional No: chills, diaphoresis, fever, malaise. Eyes No: no symptoms reported. Ears, Nose, Mouth, Throat No no symptoms reported Respiratory No: no symptoms reported. Cardiovascular No no symptoms reported Gastrointestinal/Abdominal No no symptoms reported Genitourinary dysuria. No: discharge, frequency, hesitancy, hematuria. Musculoskeletal No: no symptoms reported. Skin No: no symptoms reported. Neurological Yes: see HPI. Psychiatric No: no symptoms reported. Exam: Lab data for last 24 hours: Laboratory Tests 01/03/17 0554: POC Glucose 137 H 01/02/17 2157: Creatine Kinase 39, CK-MB (CK-2) Rel Index 1.3, CK and CKMB Interp < 0.5, Troponin I < 0.02 01/02/17 1942: POC Glucose 173 H 01/02/17 1615: Creatine Kinase 50, CK-MB (CK-2) Rel Index 1.0, CK and CKMB Interp < 0.5, Troponin I < 0.02 01/02/17 1400: Sodium 140, Potassium 4.2, Chloride 104, Carbon Dioxide 28, BUN 9, Creatinine 1.0, Estimated Creat Clear 113, Estimated GFR (MDRD) 78, Glucose 196 H, Calcium 8.9, Total Bilirubin 0.3, AST 12 L, ALT 30, Alkaline Phosphatase 79, Creatine Kinase 65, CK-MB (CK-2) Rel Index 0.8, CK and CKMB Interp < 0.5, Troponin I < 0.02, Total Protein 7.8, Albumin 3.8, Globulin 4.0 H, Albumin/Globulin Ratio 1.0 L, PT 10.0, INR 0.93, APTT 24.4, WBC 5.8, RBC 5.12, Hgb 14.4, Hct 44.5, MCV 86.8, RDW 12.5, Plt Count 298, MPV 6.3 L, Gran % 51.4, Gran # 3.0, Lymphocytes % 37.7, Monocytes % 5.6, Eosinophils % 4.2, Basophils % 1.2, Lymphocytes # 2.2, Monocytes # 0.3, Eosinophils # 0.2, Basophils # 0.1, PUBS MCHC 32.4, MCH 28.1 Admission vital signs: 1ST Vital Signs Result Date Time Pulse Ox 97 01/02 1330 B/P 161/96 01/02 1330 Temp 98.6 01/02 1330 Pulse 96 01/02 1330 Resp 20 01/02 1330 O2 Delivery OXYGEN 01/02 1541 Exam General appearance: normal appearance, alert, no acute distress Eyes: anicteric ENT: mucous membranes moist Neck: normal inspection, non-tender, no carotid bruit, no JVD Cardiovascular: regular rate & rhythm, normal peripheral pulses, no peripheral edema Respiratory: clear to auscultation ABD: left inguinal hernia incision, clean, dry well-approximately with no s/s infection, soft, diffuse tenderness, no rebound, normoactive bowel sounds Genitourinary: no hematuria, dysuria Extremities: no edema, left sided weakness Musculoskeletal: sensation intact Skin: dry, intact Neuro: normal mood/affect, oriented, speech clear, left sided weakness, BUE V /IV, BLE V/III, + left drift, + left sided facial droop, tongue midline, speech clear Plan: Problem List 1. CVA (cerebral vascular accident) Assessment/Plan Carotids and echo unremarkable. Plan for MRI today. 2. Insulin-requiring or dependent type II diabetes mellitus Assessment/Plan Finger Stick blood sugars with sliding scale coverage Plan: See above at 1156
[2017-01-03 07:31] VITALS: BP 149/96
--- NOTE | 2017-01-03 09:11 | RADIOLOGY REPORT PS360 ---
PELVIS AP ONLY HISTORY: Recent surgery, evaluate for metal for MRI MRI CLEARANCE FOR METAL CLIP ORDERING PHYSICIAN: Lennox Slaughter MD PATIENT AGE: 51 years COMPARISON: None FINDINGS: No radiopaque metallic clips. There are mild osteoarthritic changes of the hips. No acute bony pathology. IMPRESSION: 1. Osteoarthritis of the hips. 2. No metallic foreign body apparent
--- NOTE | 2017-01-03 09:19 | RADIOLOGY REPORT PS360 ---
MRI-BRAIN W/WO HISTORY: LEFT SIDED WEAKNESS/NUMBNESS ORDERING PHYSICIAN: Lennox Slaughter MD PATIENT AGE: 51 years COMPARISON: None TECHNIQUE: Standard multiplanar multiecho sequences are performed without and with gadolinium enhancement . FINDINGS: Head CT of 01/02/2017 IMPRESSION: No midline shift, mass effect, intracranial hemorrhage, or hydrocephalus is evident. There is some mild nonspecific periventricular increased T2 signal which may be related to mild gliotic change from microvascular disease. There is a very small focus of increased diffusion signal in the right parietal lobe anteriorly in the periventricular region suggesting a tiny area of lacunar infarction. No other abnormal diffusion signal apparent. No enhancing lesions. The cerebellopontine angles, cerebellum, and brainstem have an unremarkable MRI appearance of pituitary and optic chiasm are unremarkable. No intra or extra-axial mass or hemorrhage. No mastoid effusion. Mild mucosal thickening of the maxillary sinuses. IMPRESSION: 1. Small focus of restricted diffusion in the right parietal area in the periventricular region suggesting a tiny lacunar infarction 2. Otherwise negative MRI of the brain without and with contrast
[2017-01-03 10:20] VITALS: BP 149/96
[2017-01-03 11:59] VITALS: BP 134/74; BP 158/96
[2017-01-03] MEDS ORDERED: ATORVASTATIN 4040 MG PO (13:14)
[2017-01-03] MEDS ORDERED: ASPIR-LOW81 MG PO (13:14)
[2017-01-03] MEDS ORDERED: LISINOPRIL40 MG PO (13:15)
--- NOTE | 2017-01-03 13:17 | DISCHARGE SUMMARY STANDARD ---
Demographics Admit date: 01/02/17 Discharge date: 01/03/17 History of present illness History of present illness 51-year-old male patient with a history of diabetes, hypertension, and CVA was sent to the ED for evaluation of hypertension and dizziness from Dr. Conte's office where he was being seen for a 2 week follow-up status post LEFT inguinal hernia repair. Patient states "I haven't been RIGHT since my surgery." He reports left-sided pain since his hernia repair; however no left-sided weakness until 2-3 days ago. Patient had a previous CVA 1 year ago in which he had some left-sided weakness. He was able to rehab completely with no residual weakness. In the ED, patient was found to be hypertensive with left-sided weakness. CT of the head was obtained which was normal. Patient was admitted to acute care for further evaluation. Echo was obtained which was unremarkable with ejection fraction 50-55 percent. Carotid Dopplers were obtained which were normal. Hospital Course Hospital Course: Patient was admitted to acute care. Neurochecks remained unchanged with left- sided residual noted. Carotid Dopplers and echo were obtained and found to be unremarkable. MRI today showed small right-sided infarct which explains his symptoms. See radiology report. Physical therapy evaluation showed patient is able to ambulate well. He was cleared for discharge home. He has been able to eat and drink without coughing or choking. Speech therapy was consulted however they are unavailable to evaluate until later today. Since he is eating and drinking well without difficulty will proceed with discharge. Patient was not taking aspirin daily prior to admission. Discharge home on increased lisinopril, aspirin and atorvastatin. See medication reconcilation for complete list. FU in office with myself in 6 days. Will refer to neurology Dr. Soni for evaluation. PT/OT in [place] for left-sided weakness Discharge diagnoses Problem List 1. CVA (cerebral vascular accident) 2. Insulin-requiring or dependent type II diabetes mellitus Medications Medications: Discharge meds are as noted. Follow up Follow up in office in: 6 DAYS with: JAYLEN RASHID APRN at [id number]
[2017-01-03 14:01] VITALS: BP 158/96
== END 2017-01-03 14:00 | disposition home or self-care (01) | DRG 65 ==
LOC: ER 13:23 → 2ND 14:33
PROVIDERS: Emergency Medicine
DX: I63.9 Cerebral infarction, unspecified (principal); G81.94 Hemiplegia, unspecified affecting left nondominant side; I10 Essential (primary) hypertension; I25.10 Atherosclerotic heart disease of native coronary artery without angina pectoris; E10.9 Type 1 diabetes mellitus without complications; Z79.4 Long term (current) use of insulin
CPT/HCPCS: A9576